=== PATIENT | female | born 1975 ===

== ENCOUNTER 2025-06-28 13:03 | Outpatient (CLI) | payer MEDICAID | END 2025-06-28 17:00 | disposition home or self-care (01) | LOC: Rad HDHVI 13:03 | PROVIDERS: ATTEND Internal Medicine Cardiovascular Disease | DX: Z01.810 Encounter for preprocedural cardiovascular examination (principal) | CPT/HCPCS: 93306 ==

== ENCOUNTER 2025-07-05 09:05 | Outpatient (CLI) | payer MEDICAID ==
[~2025-07-05] VITALS: Ht 165.1 cm; Wt 67.1 kg
== END 2025-07-05 17:00 | disposition home or self-care (01) ==
LOC: Rad HDHVI 09:05
PROVIDERS: ATTEND Internal Medicine Cardiovascular Disease
DX: Z01.810 Encounter for preprocedural cardiovascular examination (principal); I49.1 Atrial premature depolarization; R00.0 Tachycardia, unspecified; R00.1 Bradycardia, unspecified; R07.89 Other chest pain; R94.39 Abnormal result of other cardiovascular function study; E11.9 Type 2 diabetes mellitus without complications; E78.00 Pure hypercholesterolemia, unspecified; Z82.49 Family history of ischemic heart disease and other diseases of the circulatory system
CPT/HCPCS: 78452; 93017; A9500; 96374